=== PATIENT | female | born 1995 | race Caucasian/White ===

== ENCOUNTER 2016-07-14 14:50 | Emergency (ER) | payer BC ==
[~2016-07-14] VITALS: Ht 167.6 cm; Wt 73.5 kg
[~2016-07-14 14:50] MED LIST: IBUP-1050 PO; PHEN-601
[2016-07-14 15:36] VITALS: BP 149/86; TEMP 38; O2SAT 100; Ht 167.6 cm; Wt 73.5 kg
[2016-07-14] MEDS ORDERED: AZITTAB PO (15:45)
[2016-07-14] MEDS ORDERED: SODIUM CHLORIDE 0.9% 1000ML 1,000 ML IV STA (16:22)
[2016-07-14] MEDS ORDERED: ACETAMINOPHEN 500 MG TAB PO STA (16:22)
[2016-07-14] MEDS ORDERED: ALBUTEROL 0.083% NEBU SOLN 3 ML VIAL INH STA ×2 (16:22→17:20)
[2016-07-14] MEDS ORDERED: ALBUTEROL HFA 8 GM INHALER INH ONE (16:30)
--- NOTE | 2016-07-14 16:42 | EMERGENCY ROOM VISIT NOTE ---
History Report prepared by Rolando: Colette Ng Under the Supervision of: Dr. Charbel Kohler M.D. First contact with patient: 16:01 Chief Complaint: FLU LIKE SX Stated Complaint: CHILLS,SWEATS,HEAVYNESS IN CHEST,SHALLOW BREATHING History of Present Illness The patient is a 21 year old female who presents to the Emergency Room with complaints of worsening flu-like symptoms for the past 3 days. She has been experiencing fevers, cough, shortness of breath, and chest heaviness. She went to [facility] yesterday. She had a negative flu swab and was diagnosed with bronchitis and a sinus infection. She was prescribed a Z-Kedar. She states that she has been taking that medication as prescribed. She has been taking as well. The patient states that today her cough, shortness of breath, and chest heaviness persisted. She called [facility] and they advised her to come to the ED for further evaluation. The patient has been using a Symbicort inhaler. She does not take any OCP. She denies chance of . Her vaccinations are up to date. She did not get vaccinated for the flu this year. Source of History: patient Onset: 3 days ago Position: other (global) Quality: other (flu-like symptoms) Timing: worsening Modifying Factors (Relieving): ibuprofen Associated Symptoms: + SOB, + cough, + fevers Review of Systems See HPI for pertinent positives & negatives. A total of 10 systems reviewed and were otherwise negative. Past Medical & Surgical Medical Problems: (1) Asthma (2) Bronchitis (3) Headache (4) Otitis media Family History Cancer Social History Smoking Status: Never Smoker Marital Status: single Housing Status: lives with roommate Occupation Status: [employer] student Current/Historical Medications Scheduled Azithromycin (Zithromax Z-Kedar), 1 PKT PO UD Prednisone (Prednisone Tab), 0 PO DAILY Scheduled PRN Ibuprofen (Advil), 400 MG PO Q4H PRN for Pain Allergies Coded Allergies: Amoxicillin (Verified Allergy, Unknown, UNKN, 07/14/16) Clavulanic Acid (Verified Allergy, Unknown, UNKN, 07/14/16) Physical Exam Vital Signs Date Time Temp Pulse Resp B/P Pulse Ox O2 Delivery O2 Flow Rate FiO2 07/14/16 17:03 97 07/14/16 15:36 38.0 106 18 149/86 100 Room Air Physical Exam GENERAL: Patient is a healthy-appearing well-nourished 21 year old female. She appears very anxious in the room. HEAD: Normocephalic atraumatic EYES: Ocular movements intact pupils equal and react to light OROPHARYNX mucous membranes are moist no exudates present no erythema or edema present NECK: Supple no nuchal rigidity CHEST: Good equal expansion LUNGS: Clear and equal to auscultation, appears to have a whoop-like cough. CARDIAC: Normal S1 and S2 ABDOMEN: Soft nontender no guarding BACK: No CVA tenderness EXTREMITIES: No pain upon palpation normal muscle strength in all groups no clubbing cyanosis or edema NEURO: Patient is following commands is answering questions appropriately. Alert and oriented x3 Cranial Nerves 2-12 grossly intact Medical Decision & Procedures ER Provider Diagnostic Interpretation: Radiology results as stated below per my review and radiologist interpretation: CHEST ONE VIEW PORTABLE CLINICAL HISTORY: Pt c/o SOB dyspnea COMPARISON STUDY: No previous studies for comparison. FINDINGS: The bones soft tissues and hemidiaphragms are normal. The cardiomediastinal silhouette is normal. The lungs are clear. The pulmonary vasculature is normal. IMPRESSION: Negative chest. Electronically signed by: Mevlin Woods M.D. 07/14/2016 5:15 PM Dictated Date/Time: 07/14/2016 5:15 PM Laboratory Results 07/14/16 16:35 Red Blood Count 4.52, Mean Corpuscular Volume 87.8, Mean Corpuscular Hemoglobin 29.6, Mean Corpuscular Hemoglobin Concent 33.8, Mean Platelet Volume 9.4, Neutrophils (%) (Auto) 63.4, Lymphocytes (%) (Auto) 21.4, Monocytes (%) (Auto) 14.0, Eosinophils (%) (Auto) 0.7, Basophils (%) (Auto) 0.5, Neutrophils # (Auto ) 3.79, Lymphocytes # (Auto) 1.28, Monocytes # (Auto) 0.84, Eosinophils # (Auto ) 0.04, Basophils # (Auto) 0.03 07/14/16 16:35 Test 07/14/16 16:35 07/14/16 16:41 07/14/16 16:50 07/14/16 17:00 White Blood Count 5.98 K/uL (4.8-10.8) Red Blood Count 4.52 M/uL (4.2-5.4) Hemoglobin 13.4 g/dL (12.0-16.0) Hematocrit 39.7 % (37-47) Mean Corpuscular Volume 87.8 fL (80-100) Mean Corpuscular Hemoglobin 29.6 pg (25-34) Mean Corpuscular Hemoglobin Concent 33.8 g/dl (32-36) Platelet Count 217 K/uL (130-400) Mean Platelet Volume 9.4 fL (7.4-10.4) Neutrophils (%) (Auto) 63.4 % Lymphocytes (%) (Auto) 21.4 % Monocytes (%) (Auto) 14.0 % Eosinophils (%) (Auto) 0.7 % Basophils (%) (Auto) 0.5 % Neutrophils # (Auto) 3.79 K/uL (1.4-6.5) Lymphocytes # (Auto) 1.28 K/uL (1.2-3.4) Monocytes # (Auto) 0.84 K/uL (0.11-0.59) Eosinophils # (Auto) 0.04 K/uL (0-0.5) Basophils # (Auto) 0.03 K/uL (0-0.2) RDW Standard Deviation 40.2 fL (36.4-46.3) RDW Coefficient of Variation 12.5 % (11.5-14.5) Immature Granulocyte % (Auto) 0.0 % Immature Granulocyte # (Auto) 0.00 K/uL (0.00-0.02) Est Creatinine Clear Calc Drug Dose 103.4 ml/min Estimated GFR () 108.1 Estimated GFR (Non- 93.3 BUN/Creatinine Ratio 8.7 (10-20) Calcium Level 9.2 mg/dl (8.5-10.1) Total Bilirubin 0.4 mg/dl (0.2-1) Aspartate Amino Transf (AST/SGOT) 18 U/L (15-37) Alanine Aminotransferase (ALT/SGPT) 28 U/L (12-78) Alkaline Phosphatase 50 U/L (45-117) Total Protein 8.1 gm/dl (6.4-8.2) Albumin 4.5 gm/dl (3.4-5.0) Globulin 3.6 gm/dl (2.5-4.0) Albumin/Globulin Ratio 1.3 (0.9-2) Monoscreen NEG (NEG) Bedside Hemoglobin 14.3 g/dl (12.0-16.0) Bedside Hematocrit 42 % (37-47) Bedside Sodium 140 mEq/L (135-144) Bedside Potassium 4.1 mEq/L (3.3-5.0) Bedside Chloride 100 mEq/L (101-112) Bedside Total CO2 23 mEq/l (24-31) Anion Gap 23.0 mmol/L (16-25) Bedside Blood Urea Nitrogen 8 mg/dl (7-18) Bedside Creatinine 0.8 mg/dl Bedside Glucose (other) 88 mg/dl (70-99) Bedside Ionized Calcium (Venus) 1.21 mmol/l Bedside D-Dimer 352 ng/mlFEU (0-450) Urine Color YELLOW Urine Appearance CLEAR (CLEAR) Urine pH 6.5 (4.5-7.5) Urine Specific [place] 1.012 (1.000-1.030) Urine Protein NEG (NEG) Urine Glucose (UA) NEG (NEG) Urine Ketones NEG (NEG) Urine Occult Blood 2+ (NEG) Urine Nitrite NEG (NEG) Urine Bilirubin NEG (NEG) Urine Urobilinogen NEG (NEG) Urine Leukocyte Esterase SMALL (NEG) Urine WBC (Auto) 5-10 /hpf (0-5) Urine RBC (Auto) 0-4 /hpf (0-4) Urine Hyaline Casts (Auto) 1-5 /lpf (0-5) Urine Epithelial Cells (Auto) >30 /lpf (0-5) Urine Bacteria (Auto) NEG (NEG) Influenza Type A (RT-PCR) Neg for Influ A (NEG) Influenza Type B (RT-PCR) Neg for Influ B (NEG) Labs reviewed by ED physician. Medications Administered Medications (Trade) Dose Ordered Sig/Feliz Route Start Time Stop Time Status Last Admin Dose Admin Acetaminophen (Tylenol Tab) 1,000 mg NOW STAT PO 07/14/16 16:22 07/14/16 16:26 DC 07/14/16 16:51 1,000 MG Albuterol 2 puffs 2 puffs NOW ONCE INH 07/14/16 16:30 07/14/16 16:31 DC 07/14/16 17:56 2 PUFFS Sodium Chloride (Nss 1000ml) 1,000 ml @ 999 mls/hr Q1H1M STAT IV 07/14/16 16:22 07/14/16 17:22 DC 07/14/16 16:50 999 MLS/HR Albuterol Sulfate (Ventolin 0.083% 2.5MG/3ML Neb) 2.5 mg NOW STAT INH 07/14/16 16:22 07/14/16 16:26 DC 07/14/16 16:51 2.5 MG Methylprednisolone Sodium Succinate (Solu-Medrol IV) 60 mg NOW STAT IV 07/14/16 17:20 07/14/16 17:21 DC 07/14/16 18:04 60 MG Albuterol Sulfate (Ventolin 0.083% 2.5MG/3ML Neb) 2.5 mg NOW STAT INH 07/14/16 17:20 07/14/16 17:21 DC 07/14/16 18:04 2.5 MG ECG Indication: SOB/dyspnea Rate (beats per minute): 72 Rhythm: sinus rhythm Findings: 1st degree AV block, no acute ischemic change, no ectopy Comparison ECG Date: no prior available ED Course 1601: Past medical records reviewed. The patient was evaluated in room C10. A complete history and physical examination was performed. 1622: Albuterol sulfate 2.5 mg INH, NSS 1000 ml @ 999 mls/hr IV, Tylenol 1000 mg PO 1630: Albuterol 2 puffs ING 1650: I reassessed the patient at this time. She is doing well. 1717: The patient is resting comfortably. 1720: Albuterol sulfate 2.5 mg INH, Solu-Medrol 60 mg IV 1733: I reassessed the patient at this time. She is feeling better and resting comfortably. I discussed the results and treatment plan with the patient. I answered all pertaining questions that she had. She expressed understanding and verbalized agreement. The patient will be discharged home. Medical Decision Differential diagnosis: Etiologies such as infections, reactive airway disease, pneumonia, pneumothorax , COPD, CHF, cardiac ischemia, pulmonary embolism, musculoskeletal, gastrointestinal, as well as others were entertained. This is a 21-year-old female who presents emergency department complaining of fever and flulike symptoms that has been ongoing for the past several days. The patient has not taken anything for the flu today therefore she was given Tylenol in the emergency department along with a breathing treatment. Repeat examination revealed much improvement patient's symptoms. I will note that the patient does not have an elevation in her white blood count. She is negative for flu however on examination she does appear to have a whoop like cough. Based on this finding a pertussis screen was initiated. The patient is already on azithromycin for pertussis. I will place patient on prednisone along with an albuterol inhaler. The patient was in agreement with the treatment plan. Impression Primary Impression: Acute bronchitis Scribe Attestation The scribe's documentation has been prepared under my direction and personally reviewed by me in its entirety. I confirm that the note above accurately reflects all work, treatment, procedures, and medical decision making performed by me. Departure Information Dispostion Home / Self-Care Prescriptions Prednisone (Prednisone Tab) 20 Mg Tab 0 PO DAILY, #7 TAB 2 TABS DAILY FOR 2 DAYS, THEN 1 TAB DAILY FOR 2 DAYS, THEN 1/2 TAB DAILY FOR 2 DAYS. Prov: Charbel Kohler MD 07/14/16 Referrals No Doctor, Assigned (PCP) Forms HOME CARE DOCUMENTATION FORM, IMPORTANT VISIT INFORMATION, School Instructions, Work Instructions Patient Instructions Bronchitis Acute, My [facility] Additional Instructions Use inhaler twice every 6 hours Continue taking Azithromycin Take 1000 mg Tylenol every 6 hours for fever Take 600 mg Ibuprofen every 6 hours Offset meds every 3 hours Culture results are usually available in approx 48 hours You have been examined and treated today on an emergency basis only. This is not a substitute for, or an effort to provide, complete comprehensive medical care. It is impossible to recognize and treat all injuries or illnesses in a single emergency department visit. It is therefore important that you follow up closely with [facility]. Call as soon as possible for an appointment. Thank you for your time and consideration. I look forward to speaking with you again soon. Please don't hesitate to call us if you have any questions. Problem Qualifiers Primary Impression: Acute bronchitis Bronchitis organism: unspecified organism Qualified Codes: J20.9 - Acute bronchitis, unspecified
[2016-07-14 16:49] LABS: BASO % 0.5 %; BASO ABS # 0.03 K/uL (0-0.2); COMPLETE YES; EOS % 0.7 %; HEMATOCRIT 39.7 % (37-47); LYMPH % 21.4 %; LYMPH ABS # 1.28 K/uL (1.2-3.4); MEAN CELL VOLUME 87.8 fL (80-100); MEAN CORPUSCULAR HEMOGLOBIN 29.6 pg (25-34); MEAN CORPUSCULAR HGB CONC 33.8 g/dl (32-36); MEAN PLATELET VOLUME 9.4 fL (7.4-10.4); NEUT % 63.4 %; PLATELET COUNT 217 K/uL (130-400); RED BLOOD COUNT 4.52 M/uL (4.2-5.4); WHITE BLOOD COUNT 5.98 K/uL (4.8-10.8)
[2016-07-14 16:58] LABS: ISTAT CREATININE 0.8 mg/dl; ISTAT HEMOGLOBIN 14.3 g/dl (12.0-16.0); ISTAT IONIZED CALCIUM 1.21 mmol/l
[2016-07-14 17:03] VITALS: PULSE 97
[2016-07-14 17:05] LABS: BUN/CREATININE RATIO 8.7 (10-20); CALCIUM 9.2 mg/dl (8.5-10.1); CREATININE 0.89 mg/dl (0.60-1.20)
[2016-07-14 17:08] LABS: ALB/GLOB RATIO 1.3 (0.9-2)
--- NOTE | 2016-07-14 17:16 | DIAGNOSTIC IMAGING REPORT ---
CHEST ONE VIEW PORTABLE CLINICAL HISTORY: Pt c/o SOB dyspnea COMPARISON STUDY: No previous studies for comparison. FINDINGS: The bones soft tissues and hemidiaphragms are normal. The cardiomediastinal silhouette is normal. The lungs are clear. The pulmonary vasculature is normal. IMPRESSION: Negative chest. Electronically signed by: Melvin Woods M.D. 07/14/2016 5:15 PM Dictated Date/Time: 07/14/2016 5:15 PM
[2016-07-14] MEDS ORDERED: METHYLPREDNISOLONE 125 MG VIAL IV STA (17:20)
[2016-07-14 17:22] LABS: URINE APPEARANCE CLEAR (CLEAR); URINE BILIRUBIN NEG (NEG); URINE COLOR YELLOW; URINE EPITHELIAL CELL AUTO >30 /lpf (0-5); URINE NITRITE NEG (NEG); URINE PH 6.5 (4.5-7.5); URINE SPECIFIC GRAVITY 1.012 (1.000-1.030); UROBILINOGEN NEG (NEG)
[2016-07-14 17:23] LABS: MANUAL MICROSCOPIC REQUIRED? NO; REVIEW REQ? NO
[2016-07-14] MEDS ORDERED: PRED20TA2 PO (17:34)
[2016-07-14 19:04] LABS: INFLUENZA A PCR Neg for Influ A (NEG); INFLUENZA B PCR Neg for Influ B (NEG)
[2016-07-16 15:28] LABS: BORDETELLA PERTUSSIS SOURCE Swab
[2016-07-16 16:31] LABS: EBV EARLY ANTIGEN AB <0.91 INDEX; EPSTEIN BARR VIR CAPSID IGG <0.91 INDEX
== END 2016-07-14 18:36 | disposition home or self-care (01) ==
LOC: C.EDB 14:51 → C.EDC 18:36
DX: J20.9 Acute bronchitis, unspecified (principal); I44.0 Atrioventricular block, first degree; J45.909 Unspecified asthma, uncomplicated; Z88.1 Allergy status to other antibiotic agents; Z88.8 Allergy status to other drugs, medicaments and biological substances; Z80.9 Family history of malignant neoplasm, unspecified

== ENCOUNTER 2017-09-02 19:58 | Emergency (ER) | payer BC ==
[~2017-09-02] VITALS: Ht 168.9 cm; Wt 71.1 kg
[~2017-09-02 19:58] MED LIST changes: +AZITTAB PO; -PHEN-601
[2017-09-02 20:16] VITALS: TEMP 36.6; Ht 168.9 cm; Wt 71.1 kg
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
[2017-09-02] MEDS ORDERED: IBUPROFEN 600 MG TAB PO STA (20:23)
[2017-09-02] MEDS ORDERED: LIDOCAINE HCL 2% JELLY 30 ML TUBE EXT STA (20:44)
[2017-09-02] MEDS ORDERED: BACITRACIN OINT 15 GM TUBE EXT ONE (20:45)
[2017-09-02 22:04] VITALS: BP 98/60; PULSE 66; O2SAT 99
== END 2017-09-02 22:05 | disposition home or self-care (01) ==
LOC: C.EDB 20:00 → C.EDD 22:05
DX: T20.06XA Burn of unspecified degree of forehead and cheek, initial encounter (principal); X12.XXXA Contact with other hot fluids, initial encounter; T31.0 Burns involving less than 10% of body surface; J45.909 Unspecified asthma, uncomplicated; Z88.0 Allergy status to penicillin; Z88.1 Allergy status to other antibiotic agents